=== PATIENT | male | born 1940 | race Caucasian/White ===

== ENCOUNTER 2024-11-08 09:31 | Day surgery (SDC) | payer OTHER ==
[~2024-11-08] VITALS: Ht 175.3 cm; Wt 71.0 kg
[~2024-11-08 09:31] MED LIST: ATOR10 PO; Balanced Salt Epinephrine Irrigation Solution 500 mL IR SCH; LATA.005SO BOTHEYES; Lidocaine HCl/Pf 1% 5 ML VIAL XX SCH; Moxifloxacin HCL 0.5 MG/0.1 ML 0.4MLSYR RIGHTEYE SCH; PHENYLEPHRINE\\TROPICAMIDE\\TETRACAINE OPHTHALMIC DILATING SOLN RIGHTEYE PRN; Povidone-Iodine 450 DROP/30 ML Solution ONE; Povidone-Iodine 450 DROP/30 ML Solution RIGHTEYE SCH; TIMO.25OPS BOTHEYES; Tetracaine HCl/Pf 0.5% Opth Soln 4 ml ONE; Triamcinolone Inj Susp 40 MG / ML 1ML Vial INJ SCH; Triamcinolone Inj Susp 40 MG / ML 1ML Vial ONE
[2024-11-08] MEDS ORDERED: Diazepam 2 MG Tab ONE (09:55)
--- NOTE | 2024-11-08 10:07 | NUR ---
11/08/24 Deborah Gaytan PT CURRENTLY RATES ANXIETY 0/10
[2024-11-08] MEDS ORDERED: Ondansetron HCl 2 MG / ML 2ML Vial ONE (10:29)
[2024-11-08] MEDS ORDERED: Tetracaine HCl 0.5% Opth Soln 15 ml RIGHTEYE ONE (10:32)
--- NOTE | 2024-11-08 11:30 | NUR ---
11/08/24 1130 Jas Henry PT DENIED CP, SOB, NAUSEA, WEAKNESS, AND OTHER CARDIAC SYMPTOMS. NONE WERE OBSERVED. PT STATES SDU HR IS BASELINE. DR. MAGANA CONSULTED REGARDING HR AND APPROVED D/C.
== END 2024-11-08 11:21 | disposition home or self-care (01) ==
LOC: ORSCSDS 09:31
PROVIDERS: Ophthalmology
PROC: 08RJ3JZ Replacement of Right Lens with Synthetic Substitute, Percutaneous Approach (ICD-10-PCS; principal; 2024-11-08 11:00)
DX: H25.813 Combined forms of age-related cataract, bilateral (principal); H40.1190 Primary open-angle glaucoma, unspecified eye, stage unspecified; H18.519 Endothelial corneal dystrophy, unspecified eye; H35.89 Other specified retinal disorders; H35.3190 Nonexudative age-related macular degeneration, unspecified eye, stage unspecified; Z79.899 Other long term (current) drug therapy
CPT/HCPCS: A9270; J2405; J3301; V2632